=== PATIENT | female | born 1975 | race Hispanic/Latino ===

== ENCOUNTER 2017-10-17 12:49 | Emergency (ER) | payer BC ==
[~2017-10-17] VITALS: Ht 149.9 cm; Wt 72.6 kg
--- OUTSIDE RECORDS SUMMARY | 2017-10-17 12:51 | XMS REPORT ---
[facility] Address Unknown Phone Unavailable Care Team Providers Care Technical Sales Support Manager Name Role Phone Unavailable Unavailable Problems This patient has no known problems. Allergies, Adverse Reactions, Alerts This patient has no known allergies or adverse reactions. Medications This patient has no known medications. Encounters Start Date/Time End Date/Time Encounter Type Admission Type Attending [facility] Care Department Encounter ID 2017-10-11 00:00:00 2017-10-11 00:00:00 Outpatient [facility] [id number] 2017-08-31 00:00:00 2017-08-31 00:00:00 Outpatient [facility] [id number] 2017-08-23 00:00:00 2017-08-23 00:00:00 Outpatient [facility] [id number] 2017-08-06 16:01:20 2017-08-06 16:01:20 Outpatient [facility] [id number] 2017-07-31 00:00:00 2017-07-31 00:00:00 Outpatient [facility] [id number] 2017-07-26 00:00:00 2017-07-26 00:00:00 Outpatient [facility] [id number] 2017-07-25 08:56:33 2017-07-25 08:56:33 Outpatient [facility] [id number] 2017-07-24 16:45:47 2017-07-24 16:45:47 Outpatient [facility] [id number] 2017-07-23 00:00:00 2017-07-23 00:00:00 Outpatient [facility] [id number] 2017-07-06 16:45:39 2017-07-06 16:45:39 Outpatient [facility] [id number] 2017-07-06 00:00:00 2017-07-06 00:00:00 Outpatient [facility] [id number] 2017-06-15 00:00:00 2017-06-15 00:00:00 Outpatient [facility] [id number] 2017-06-14 10:29:16 2017-06-14 10:29:16 Outpatient [facility] [id number] 2017-06-14 10:27:39 2017-06-14 10:27:39 Outpatient [facility] [id number] 2017-06-05 15:53:56 2017-06-05 15:53:56 Outpatient [facility] [id number] 2017-06-05 00:00:00 2017-06-05 00:00:00 Outpatient [facility] [id number] 2017-06-04 00:00:00 2017-06-04 00:00:00 Outpatient [facility] [id number] 2017-06-04 00:00:00 2017-06-04 00:00:00 Outpatient [facility] [id number]
[2017-10-17] MEDS ORDERED: METHYLPREDNISOLONE SOD SUCC 125 MG/2ML VIAL IV SCH (13:15)
[2017-10-17] MEDS ORDERED: ALBUTEROL/IPRATROPIUM 3 ML NEB NEB ONE (13:15)
[2017-10-17 13:57] LABS: BASOPHILS # (AUTO) 0.1 (0.0-0.1); BASOPHILS % 0.6 % (0.0-1.0); EOSINOPHILS # (AUTO) 0.2 (0.0-0.4); EOSINOPHILS % 2.7 % (0.0-6.0); HEMATOCRIT 39.7 % (34.2-44.1); HEMOGLOBIN 13.1 g/dL (12.0-16.0); LYMPHOCYTES % 12.8 % (18.0-39.1); MEAN CORPUSCULAR HEMOGLOBIN 25.5 pg (28-32); MEAN CORPUSCULAR VOLUME 77.2 fL (81-99); MONOCYTES # (AUTO) 0.4 (0.2-0.8); MONOCYTES % 4.6 % (4.4-11.3); NEUTROPHILS # (AUTO) 6.2 (2.1-6.9); NEUTROPHILS % 78.9 % (38.7-80.0); PLATELET COUNT 362 x10e3/uL (140-360); RED BLOOD COUNT 5.14 x10e6/uL (3.6-5.1); RED CELL DISTRIBUTION WIDTH 14.6 % (11.7-14.4)
--- NOTE | 2017-10-17 14:09 | Diagnostic Imaging Report ---
PROCEDURE: X-RAY CHEST, TWO VIEWS COMPARISON: None. INDICATIONS: COUGH, SHORTNESS OF BREATH FINDINGS: LUNGS: No mass or infiltrate PLEURA: No effusions or pneumothorax. HEART \T\ MEDIASTINUM: The heart is within normal size-limits. No hilar lymphadenopathy. BONES \T\ SOFT TISSUES: There are multiple healed posterior left rib fractures. No acute fractures are identified. Soft tissues are unremarkable. CONCLUSION: No acute thoracic abnormality. Dictated by: Viviane Ramirez M.D. on 10/17/2017 at 14:08 Electronically approved by: Viviane Ramirez M.D. on 10/17/2017 at 14:08
[2017-10-17 14:17] LABS: ALANINE AMINOTRANSFERASE 61 IU/L (0-55); ALBUMIN 3.4 g/dL (3.5-5.0); ALBUMIN/GLOBULIN RATIO 0.9 (0.8-2.0); ALKALINE PHOSPHATASE 82 IU/L (40-150); ANION GAP 13.5 mmol/L (8-16); BLOOD UREA NITROGEN 10 mg/dL (7-26); BUN/CREATININE RATIO 15 (6-25); CALCIUM 8.4 mg/dL (8.4-10.2); CARBON DIOXIDE 24 mmol/L (22-29); CHLORIDE 103 mmol/L (98-107); CREATININE, SERUM 0.68 mg/dL (0.57-1.11); EST GLOMERULAR FILTRATION RATE > 60 ML/MIN (60-); GLUCOSE 195 mg/dL (74-118); POTASSIUM 3.5 mmol/L (3.5-5.1); SODIUM 137 mmol/L (136-145)
[2017-10-17 15:23] VITALS: BP 124/73
== END 2017-10-17 15:38 | disposition home or self-care (01) ==
LOC: ER 12:49
DX: J45.901 Unspecified asthma with (acute) exacerbation (principal); J09.X2 Influenza due to identified novel influenza A virus with other respiratory manifestations; Z87.891 Personal history of nicotine dependence; E11.9 Type 2 diabetes mellitus without complications
CPT/HCPCS: 36415; 71046; 80053; 83880; 85025; 87400; 93005; 94640; 99284; J2930